=== PATIENT | male | born 1965 | race Caucasian/White ===

== ENCOUNTER 2024-07-10 04:19 | Day surgery (SDC) | payer OTHER ==
[2024-07-09 12:13] VITALS: BMI 25.8
[2024-07-10] MEDS ORDERED: ROCURONIUM BROMIDE 50 MG/5 ML SYRINGE ONE (08:18)
[2024-07-10] MEDS ORDERED: PROPOFOL 40 ML ONE (08:18)
[2024-07-10] MEDS ORDERED: SUCCINYLCHOLINE CHLORIDE 200 MG/10 ML SYRINGE ONE (08:18)
[2024-07-10] MEDS ORDERED: MIDAZOLAM HCL 2 MG/2 ML SINGLE DOSE VIAL ONE (08:18)
[2024-07-10] MEDS ORDERED: BUPIVACAINE HCL/PF 0.5% (5MG/ML) 10 ML VIAL ONE (08:32)
[2024-07-10] MEDS: ceFAZolin SODIUM 1 GM VIAL IVPB ONE (08:40)
[2024-07-10] MEDS ORDERED: HYDROmorphone HCl 2 MG/ML VIAL ONE (08:45)
[2024-07-10] MEDS: BUPIVACAINE HCL/PF 0.5% (5 MG/ML) 30 ML VIAL IJ ONE (08:52)
[2024-07-10] MEDS ORDERED: NEOSTIGMINE METHYLSULFATE 0.5 MG/1 ML - 10 ML MDV ONE (09:31)
[2024-07-10] MEDS ORDERED: oxyCODONE HCL 5 MG TABLET PO PRN (09:58)
[2024-07-10] MEDS ORDERED: ONDANSETRON 4 MG/2 ML VIAL IVPUSH PRN (09:58)
[2024-07-10] MEDS: LACTATED RINGERS SOLUTION 1,000 ML IV SCH (10:15)
[2024-07-10 13:27] VITALS: RESP 18
[2024-07-10 14:10] VITALS: BP 113/75; PULSE 98; TEMP 97.5
== END 2024-07-10 14:05 | disposition home or self-care (01) ==
LOC: JASU-SURG 04:19
PROVIDERS: ATTEND Surgery
PROC: 0WUF4JZ Supplement Abdominal Wall with Synthetic Substitute, Percutaneous Endoscopic Approach (ICD-10-PCS; principal; 2024-07-10 08:00)
DX: K43.0 Incisional hernia with obstruction, without gangrene (principal)
CPT/HCPCS: 86850; 86900; 86901; 94010; 94760; C1781